=== PATIENT | female | born 1985 | race Caucasian/White ===

== ENCOUNTER 2017-03-06 08:23 | Emergency (ER) | payer MEDICAID, OTHER ==
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
[2017-03-06 08:59] LABS: BASOPHIL # 0.1 K/uL (0.0-0.2); BASOPHIL % 0.7 %; EOSINOPHIL # 0.2 K/uL (0.0-0.5); EOSINOPHIL % 1.8 %; HEMATOCRIT 41.5 % (33.0-46.0); HEMOGLOBIN 13.3 g/dL (11.0-15.0); IMMATURE GRANULOCYTE # 0.1 K/uL (0.0-0.3); IMMATURE GRANULOCYTE % 0.5 %; LYMPHOCYTE % 30.6 %; MCH 27.4 pg (27.0-34.0); MCV 85.6 fl (83.0-98.0); MONOCYTE # 0.6 K/uL (0.0-1.0); MONOCYTE % 6.5 %; MPV 8.7 fl (9.4-12.4); NEUTROPHIL # (ANC) 5.8 K/uL (1.8-7.8); NEUTROPHIL % 59.9 %; NRBC % 0 /100WBC (0-0.00); PLATELET COUNT 354 K/uL (150-450); RBC 4.85 M/uL (3.50-5.00); RDW-CV 13.2 % (11.9-14.6); WBC 9.7 K/uL (4.0-11.0)
[2017-03-06 09:10] LABS: INR - (THERAPEUTIC) 0.94 (0.92-1.07); PROTIME 9.9 SECONDS (9.8-11.4); PTT 26 SECONDS (25-32)
[2017-03-06 09:20] LABS: ALBUMIN 3.8 gm/dL (3.5-5.0); ALK PHOS 106 IU/L (33-138); ALT 30 IU/L (12-78); ANION GAP 13.5 (10.0-19.0); AST 24 IU/L (10-40); BLOOD UREA NITROGEN 18 mg/dL (6-24); CALCIUM 8.9 mg/dL (8.5-10.5); CHLORIDE 107 mMol/L (96-110); CO2 25 mMol/L (22-32); CREATININE 1.2 mg/dL (0.5-1.1); ESTIMATED GFR (MDRD EQUATION) 53; POTASSIUM 4.5 mMol/L (3.7-5.1); SODIUM 141 mMol/L (135-145); TOTAL BILIRUBIN 0.4 mg/dL (0.0-1.5); TOTAL PROTEIN 7.4 g/dL (6.0-8.4)
== END 2017-03-06 10:06 | disposition disaster alternative care site (69) ==
LOC: GACC 08:23
PROVIDERS: Emergency Medicine
DX: M54.2 Cervicalgia (principal); M25.561 Pain in right knee; Z90.49 Acquired absence of other specified parts of digestive tract; Z90.89 Acquired absence of other organs; Z79.899 Other long term (current) drug therapy; Z98.890 Other specified postprocedural states; V89.2XXA Person injured in unspecified motor-vehicle accident, traffic, initial encounter; Y92.410 Unspecified street and highway as the place of occurrence of the external cause

== ENCOUNTER → 2017-03-06 | Outpatient (CLI) | payer MEDICAID, OTHER | END | disposition disaster alternative care site (69) | LOC: GAMB 08:02 | DX: T14.8 Other injury of unspecified body region (principal); Z79.1 Long term (current) use of non-steroidal anti-inflammatories (NSAID); Z79.899 Other long term (current) drug therapy; V89.9XXA Person injured in unspecified vehicle accident, initial encounter | CPT/HCPCS: A0425; A0427; J3010 ==

== ENCOUNTER → 2017-03-16 | Outpatient (CLI) | payer MEDICAID | END | disposition disaster alternative care site (69) | LOC: GRAD 10:06 | DX: M54.2 Cervicalgia (principal); V89.2XXA Person injured in unspecified motor-vehicle accident, traffic, initial encounter ==

== ENCOUNTER 2017-06-27 21:27 | Emergency (ER) | payer MEDICAID ==
--- NOTE | ~2017-06-27 | ER ---
PATIENT'S NAME: NAREN SCOTTI [facility] AGE: 31 Y [address] ROOM: [place] [address] LOCATION: [facility] ADMIT DATE: 06/27/2017 ER/Outpatient Report DISCHARGE DATE: 06/27/2017 FAMILY PHYSICIAN: PHYSICIAN, NO ATTENDING PHYSICIAN: Dyan Escamilla Time of Arrival: 2127 hours. Time of Evaluation: 2129 hours. CHIEF COMPLAINT: Dizziness. HISTORY OF PRESENT ILLNESS: The patient is a 31-year-old female, who presents to the emergency department today with a chief complaint of dizziness. She reports it has been going on for 2 days. She reports the room is spinning. She reports she feels nauseated. No vomiting. She does report she has had a few episodes of diarrhea. She has had some nasal congestion and nasal drainage. Denies any chest pain. No shortness of breath. No headache. Symptoms are currently moderate in severity. PAST MEDICAL HISTORY: Gastroesophageal reflux disease, anxiety, depression, borderline bipolar. PAST SURGICAL HISTORY: Right ankle x2, appendectomy, , tonsillectomy. SOCIAL HISTORY: The patient denies any tobacco use. Reports rare alcohol use. Denies any illicit drug use. ALLERGIES: NO KNOWN DRUG ALLERGIES. MEDICATIONS: Please see list. PRIMARY CARE DOCTOR: None. REVIEW OF SYSTEMS: All systems are reviewed by myself and negative with the exception of those discussed in the HPI and past medical history. PHYSICAL EXAMINATION: PATIENT'S NAME: NAREN SCOTTI [facility] AGE: 31 Y [address] ROOM: [place] [address] LOCATION: [facility] ADMIT DATE: 06/27/2017 ER/Outpatient Report DISCHARGE DATE: 06/27/2017 FAMILY PHYSICIAN: PHYSICIAN, NO ATTENDING PHYSICIAN: Dyan Escamilla VITAL SIGNS: Weight 138.9 kg, blood pressure 182/97, pulse 95, respiratory rate 16, temperature 97.6, oxygen saturation 97% on room air. GENERAL: The patient is a 31-year-old female, who appears stated age, in no acute distress at this time. HEENT: Head: Normocephalic, atraumatic. Pupils are equal, round, and reactive to light and accommodation. Extraocular motions are intact. Nares are patent bilaterally. TMs are clear. Oropharynx is clear. Mucous membranes are moist. NECK: Supple. There is no nuchal rigidity. CARDIOVASCULAR: Regular rate and rhythm. No murmurs, rubs, or gallops. LUNGS: Clear to auscultation bilaterally. No wheezes, rales, or rhonchi. ABDOMEN: Soft, nontender, and nondistended. No rebound, rigidity, or guarding. MUSCULOSKELETAL: The patient moves all 4 extremities. 5/5 muscle strength. NEUROLOGICAL: GCS 15. Alert and oriented x4. Cranial nerves 2 through 12 are intact. Normal [id number]. Normal rapid hand movement. Equal maintenance groundskeeper strength bilaterally. Downward going toes. No clonus. 2/4 reflexes. She ambulates with steady gait. SKIN: Warm and dry. There are no rashes or lesions noted. LABORATORY DATA AND X-RAYS: None. IMPRESSION: 1. Vertigo. 2. Initial visit. EMERGENCY DEPARTMENT COURSE: The patient was brought back to the examination room. Seen and evaluated by myself. The patient was given 2 mg of Ativan p.o. She was given 25 mg of meclizine p.o. The patient does have vertiginous symptoms. She is ambulating. I have discussed follow [facility]. I have discussed return to care instructions including worsening symptoms or any other concerns to return to the emergency department as soon as possible. I have written a prescription for meclizine. The patient is agreeable. She is without further questions at this time. DISPOSITION,: The patient discharged home in good condition. DYAN ESCAMILLA DO PATIENT'S NAME: HARRY SCOTT [facility] AGE: 31 Y [address] ROOM: [place] [address] LOCATION: ED ADMIT DATE: 06/27/2017 ER/Outpatient Report DISCHARGE DATE: 06/27/2017 FAMILY PHYSICIAN: PHYSICIAN, NO ATTENDING PHYSICIAN: Dyan Escamilla/frieda /[id number] d: 06/28/17 0117 t: 07/04/17 1553, OUTPATIENT REPORT
== END 2017-06-27 21:53 | disposition disaster alternative care site (69) ==
LOC: GMED 21:27
DX: R42 Dizziness and giddiness (principal); K21.9 Gastro-esophageal reflux disease without esophagitis; F41.9 Anxiety disorder, unspecified; F32.9 Major depressive disorder, single episode, unspecified; Z98.890 Other specified postprocedural states; Z90.49 Acquired absence of other specified parts of digestive tract; Z90.89 Acquired absence of other organs; Z79.899 Other long term (current) drug therapy

== ENCOUNTER 2017-07-24 23:19 | Emergency (ER) | payer MEDICAID ==
--- NOTE | ~2017-07-24 | ER ---
PATIENT'S NAME: HARRY SCOTT [facility] AGE: 31 Y [address] ROOM: [place] [address] LOCATION: [facility] ADMIT DATE: 07/24/2017 ER/Outpatient Report DISCHARGE DATE: 07/25/2017 FAMILY PHYSICIAN: PHYSICIAN, NO ATTENDING PHYSICIAN: Aryan Swain Admission date and time documented in the medical record. I saw the patient at 2335 hours. CHIEF COMPLAINT: Low back pain. HISTORY OF PRESENT ILLNESS: The patient is a 31-year-old female who comes in with low back pain that she has kind of had for about 1 to 2 weeks, however, it has gotten worse over the past 2 days. No known injury or fall. Does not recall injuring with lifting, pushing, or pulling. 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 She has no leg pain. No leg numbness or tingling. No bowel or bladder changes. Pain increases with certain movements. No recent colds, coughs, flus, fever, chills, or sweats. No chest pain, shortness of breath, or cough. No headache, eyes, ears, nose, throat, neck, or upper back pain. No lightheadedness, dizziness. No abdominal pain, nausea, vomiting, or diarrhea. No urinary symptomatology. HOME MEDICATIONS: See attached medication list. ALLERGIES: NONE. SOCIAL HISTORY: Nonsmoker. Occasional intake of alcohol. PAST MEDICAL HISTORY: Anxiety, depression, bipolar, gastroesophageal reflux. OPERATIONS: Ankle surgery, appendectomy, , tonsillectomy. REVIEW OF SYSTEMS: All systems reviewed by me are negative with the exception of those discussed in the history of present illness. PHYSICAL EXAMINATION: PATIENT'S NAME: NAREN SCOTTI Sher[facility] AGE: 31 Y [address] ROOM: [place] [address] LOCATION: [facility] ADMIT DATE: 07/24/2017 ER/Outpatient Report DISCHARGE DATE: 07/25/2017 FAMILY PHYSICIAN: PHYSICIAN, NO ATTENDING PHYSICIAN: Aryan Swain VITAL SIGNS: Temperature 98.2, pulse 108, respirations 16, blood pressure 143/101, O2 saturation on room air is 98%. LUNGS: Clear. HEART: Regular. ABDOMEN: Soft, nontender. Good bowel tones. PELVIS: Stable. EXTREMITIES: Moves all 4 extremities. No peripheral edema, cyanosis, or deformity. Straight leg raising negative. Range of motion of her back is restricted because of the pain. NEUROVASCULAR: Intact. IMPRESSION: Low back pain, musculoskeletal etiology. PLAN: The patient was given Valium 10 mg IM in the emergency department, Toradol 60 mg IM in the emergency department, Dilaudid 1 mg IM in the emergency department. Dismissed home. Observation. Activity as tolerated. Ice or heat or combination to sore areas intermittently as needed. Flexeril 10 mg 3 times a day, #30; Toradol 10 mg 1 every 6 hours x12 doses; Medrol Dosepak take as directed. Physical therapy if needed. Follow up with personal physician in 3 to 4 days if needed. If no improvement by 10 to 14 days, may need to have an MRI of the lumbosacral spine. Discussion ensued with the patient concerning my findings and recommendations, she understands. ARYAN SWAIN MD SDS/modl /[id number] d: 07/25/17 0456 t: 07/27/17 1829, OUTPATIENT REPORT
== END 2017-07-25 00:32 | disposition disaster alternative care site (69) ==
LOC: GMED 23:19
DX: M54.5 Low back pain (principal); F41.9 Anxiety disorder, unspecified; F32.9 Major depressive disorder, single episode, unspecified; K21.9 Gastro-esophageal reflux disease without esophagitis; Z90.89 Acquired absence of other organs; Z90.49 Acquired absence of other specified parts of digestive tract; Z98.890 Other specified postprocedural states; Z79.899 Other long term (current) drug therapy
CPT/HCPCS: J1170; J1885; J3360